=== PATIENT | male | born 1970 | race Caucasian/White ===

== ENCOUNTER 2025-01-16 02:24 | Emergency (ER) | payer OTHER, SELFPAY ==
[2025-01-16 02:24] VITALS: BP 143/91; PULSE 56; RESP 18; TEMP 36.5; O2SAT 95; BMI 30.1
--- NOTE | 2025-01-16 02:36 | CT_ITS ---
PROCEDURE: ABDOMEN/PELVIS WITHOUT CONT 01/16/2025 REASON FOR EXAM: KIDNEY STONE TECHNIQUE: Abdomen and pelvis CT without intravenous contrast. Noncontrast technique limits evaluation of the abdominal and pelvic viscera. Coronal and Sagittal reconstruction series were provided. One or more dose reduction techniques were used (e.g., Automated exposure control, adjustment of the mA and/or kV according to patient size, use of iterative reconstruction technique). PATIENT PREPARATION: Per protocol ORAL CONTRAST TYPE: None. COMPARISON: None available FINDINGS: Bibasilar atelectasis. The liver, gallbladder, adrenal glands, pancreas and spleen appear within limits on noncontrast imaging. Bilateral right more in number and size nephrolithiasis. 5 mm presenting axis proximal right ureteral stone near the ureteropelvic junction at the L2-3 level which based on size may not spontaneously pass. Associated moderate right hydronephrosis. Asymmetric right perinephric stranding and edema appears reactive. Abdominal aorta appears within limits on noncontrast imaging. No adenopathy. No bowel dilation or free air. Normal caliber appendix without secondary signs. The bladder appears within limits. Prostate appears within limits. No free fluid. L4-5 discogenic change with disc space narrowing. L5-S1 spondylosis/discogenic change. CT/Abdomen/Pelvis without Cont IMPRESSION: Bilateral right more in number and size nephrolithiasis. 5 mm presenting axis p roximal right ureteral stone near the ureteropelvic junction at the L2-3 level which based on size may not spontaneou sly pass. Associated moderate right hydronephrosis. Asymmetric right perinephric stranding and edema appears reacti ve. Reading Location: [id number]
--- NOTE | 2025-01-16 02:36 | EDS_ITS ---
HPI History of Present Illness Chief Complaint: Flank Pain Informant: patient and spouse/S.O. Narrative Narrative: Very pleasant 54-year-old male presenting to the emergency room with a chief complaint of kidney stone. Patient states he has a history of kidney stones has not required surgery to pass them. He states that earlier this evening he began to have some discomfort in the right side of his abdomen into the flank. He states it got better but then came back was lower towards his groin. He states that he did have some nausea and vomiting. The pain has backed off but it is still noted. He notes his urine is darker than normal. No reported fevers. He otherwise notes he is a very healthy individual. [facility] Medical History Kidney stones Home Medications ?Medication ?Instructions ?Recorded ?Last Taken ?Type ketorolac 10 mg tablet 10 mg PO Q8H PRN pain #15 ta bs 01/16/25 Unknown Rx ondansetron 4 mg disintegrating 4 mg PO Q6H PRN PRN Na usea #15 tabs 01/16/25 Unknown Rx tablet oxycodone-acetaminophen 5 mg-325 1 tab PO Q6H PRN PRN Pain 3 days 01/16/25 Unknown Rx mg tablet #12 TABLETS tamsulosin 0.4 mg capsule 0.4 mg PO DAILY #7 CAPSULES 01/16/25 Unknown Rx Allergy/AdvReac Type Severity Reaction Status Date / Time Penicillins (PCN) Allergy PT UNABLE Verified 01/16/25 02:28 TO RESPOND-NEEDS F/U Social History Smoking Status: Never smoker ROS ROS ED Constitutional Constitutional ED: Denies chills, fever(s) or weight loss Eyes Eyes: Denies change in vision or diplopia ENT ENT ED: Denies ear pain, rhinorrhea or sore throat Cardiovascular Cardiovascular: Denies chest pain, orthopnea, palpitations or racing heartbeat Respiratory/Chest Respiratory/Chest: Denies cough, dyspnea or orthopnea Gastrointestinal Gastrointestinal: Reports abdominal pain, nausea and vomiting; Denies diarrhea Genitourinary Genitourinary ED: Reports hematuria; Denies dysuria or urinary frequency Musculoskeletal Musculoskeletal: Reports back pain; Denies arthralgias or myalgias Integumentary Denies abscess or rash Neurologic Neurologic: Denies headache(s) or weakness Psychiatric Psychiatric: Denies anxiety, depression, suicidal ideation or suicidal thoughts Endocrine Endocrinology: Denies polydipsia, polyphagia or polyuria Allergic/Immunologic Allergic/Immunologic ED: Denies mouth swelling, tongue swelling or urticaria EXAM Physical Exam Const Vital Signs: 01/16/25 02:24 01/16/25 04:00 01/16/25 05:31 Temperature 97.7 F L 98.0 F Temperature Source Oral Pulse Rate 56 L 58 L 63 Respiratory Rate 18 16 18 Blood Pressure 143/91 H 153/87 H 126/72 H Blood Pressure Mean 108 109 90 Pulse Ox 95 97 96 Oxygen Delivery Method Room Air Room Air Positive well nourished and well developed General Appearance ED: well developed HEENT Reports normocephalic, head/scalp atraumatic and moist mucous membranes Eyes PERRL and EOMs intact bilaterally Neck no lymphadenopathy, supple and no JVD Resp normal respiratory effort and clear to auscultation bilaterally Cardio regular rate, regular rhythm and no murmurs GI normal to inspection, nondistended, normoactive bowel sounds and non-tender Palpation: soft Back/Spine no CVA tenderness and normal ROM Extremity normal to inspection General Extremety ED: Negative for edema General Extremity: Negative for edema Neuro oriented x3 and CN's II-XII intact bilaterally Sensorium / Orientation: alert Motor Exam: strength 5/5 throughout Psych mental status grossly normal Mood & Affect: Negative for depressed or tearful Skin no rashes or lesions noted and no wounds MDM MDM MDM Narrative Medical decision making narrative: Differential diagnosis includes but not limited to kidney stone hematuria UTI pyelonephritis hydronephrosis hydroureter appendicitis colitis Patient's white count is elevated 15 creatinine 1.37 glucose 142. Urinalysis demonstrates 25-[address] of the abdomen pelvis was obtained which demonstrates a proximal ureteral stone. There is associated hydronephroureter. Patient received Toradol and Zofran as well as IV fluids he has been doing better. His pain did return and he did receive morphine. I spoke with the patient at length regarding his findings. He is from out of town up from [facility]. Using shared decision making I will write for pain and nausea medication. He has been on Flomax in the past. He is planning on returning home today and will plan on making a follow-up appointment with urology. He understands return instructions as well as returning to his local ED should he require further pain management. History & Record Review Discussion w/independent historian: Patient and Family Additional record(s) reviewed:: No prior records Lab Data Attestation: I reviewed the patient's lab results. Labs: Laboratory Results - last 24 hr 01/16/25 01/16/25 02:30 02:42 WBC 15.0 H RBC 4.90 Hgb 15.1 Hct 43.1 MCV 88.0 MCH 30.8 MCHC 35.0 RDW Std Deviation 39.1 RDW Coeff of Loyda 12.1 Plt Count 233 MPV 9.8 Immature Gran % (Auto) 0.400 Neut % (Auto) 89.8 H Lymph % (Auto) 5.9 L [place] % (Auto) 3.5 Eos % (Auto) 0.1 Baso % (Auto) 0.3 Absolute Neuts (auto) 13.4 H Absolute Lymphs (auto) 0.88 Nucleated RBC % 0 Sodium 138 Potassium 3.9 Chloride 101 Carbon Dioxide 24.5 Anion Gap 12 BUN 19 Creatinine 1.37 H Estim Creat Clear Calc 80.11 Est GFR (MDRD) Non-Af 61 BUN/Creatinine Ratio 14.1 Glucose 142 H Calcium 9.7 Urine Color Yellow Urine Clarity Clear Urine pH 5.0 Ur Specific [place] 1.025 Urine Protein 30 H Urine Glucose (UA) Normal Urine Ketones Negative Urine Occult Blood 250 H Urine Nitrite Negative Urine Bilirubin Negative Urine Urobilinogen Normal Ur Leukocyte Esterase 25 H Urine RBC 25-50 SEEN Urine WBC 0-5 SEEN Ur Squamous Epith Cells 0-5 SEEN Urine Bacteria 0 SEEN Urine Mucus 0 SEEN Radiography Diagnostic Testing: Clinical Impression(s) from Imaging Studies Abdomen/Pelvis CT 01/16/25 02:36 IMPRESSION: Bilateral right more in number and size nephrolithiasis. 5 mm presenting axis proximal right ureteral stone near the ureteropelvic junction at the L2-3 level which based on size may not spontaneously pass. Associated moderate right hydronephrosis. Asymmetric right perinephric stranding and edema appears reactive. Reading Location: [facility] Discharge Plan Triage Chief Complaint: Flank Pain ED Provider: Franco Dillon Dx/Rx/DC Orders Clinical Impression: Kidney stone on right side, Abdominal pain, Vomiting Instructions: ED Kidney Stone with Pain Prescriptions: New oxycodone-acetaminophen 5-325 mg tablet 1 tab PO Q6H PRN PRN (Reason: Pain) 3 Days Qty: 12 0RF ketorolac 10 mg tablet 10 mg PO Q8H PRN (Reason: pain) Qty: 15 0RF Rx Instructions: maximum total duration of 5 days from all oral, intranasal, or parenteral formulations tamsulosin 0.4 mg capsule 0.4 mg PO DAILY Qty: 7 0RF ondansetron 4 mg tablet,disintegrating 4 mg PO Q6H PRN PRN (Reason: Nausea) Qty: 15 0RF Primary Care Provider: Care Physician,No Primary Referrals: [facility] Doctor,Out of [Non-Staff] - Activity Restrictions/Additional Instructions: Your urinalysis today demonstrated 25-50 red cells 0-5 white cells and no bacteria Your creatinine today is 1.3. Your white blood cell count is 15 Please follow up with Urology at home. Print Language: Kazakh Disposition Disposition: Home, Self Care Discharge Date/Time: 01/16/25 06:09
[2025-01-16] MEDS: 0.9% Normal Saline (1000mL) 1,000 ML 250 ML IV (02:48)
[2025-01-16] MEDS: Ondansetron 4 MG/2 ML Vial IV (02:48)
[2025-01-16] MEDS: Ketorolac 30 MG/ML Syringe IV (02:48)
[2025-01-16 02:53] LABS: Absolute Lymphocyte Count 0.88 X10^3/uL (0.83-4.51); Absolute Neutrophil Count 13.4 X10^3/uL (2.0-7.7); Basophil# 0.04 X10^3/uL; Basophil% 0.3 % (0-1); Eosinophil# 0.01 X10^3/uL; Eosinophils% 0.1 % (0-5); Hematocrit 43.1 % (40-54); Hemoglobin 15.1 g/dL (13.0-16.5); Lymphocyte # 0.88 X10^3/ul (0.83-4.51); Lymphocyte % 5.9 % (19-41); Mean Corpuscular Hgb 30.8 pg (27.0-32.0); Mean Platelet Vol. 9.8 fl (6.2-12.0); Monocyte# 0.53 X10^3/uL; Monocyte% 3.5 % (0-10); NRBC Flagged by Analyzer 0 % (0-5); Neutrophil # 13.43 X10^3/uL (2.7-7.7); Neutrophil % 89.8 % (47-70); Platelet Count 233 K/mm3 (150-450); RBC Distribution Width CV 12.1 % (11.6-14.6); RBC Distribution Width SD 39.1 fl (35.1-43.9)
[2025-01-16 03:14] LABS: Anion Gap 12 (5-15); BUN 19 mg/dL (4-19); BUN/Creat Ratio 14.1 RATIO (10-20); Calcium,Total 9.7 mg/dL (7.6-11.0); Carbon Dioxide 24.5 mmol/L (21.0-32.0); Chloride 101 mmol/L (98-108); Creatinine, Serum 1.37 mg/dL (0.70-1.20); EST Glomerular Filtration Rate 61 (>60); Estimated Creatinine Clearance 80.11 ml/min (50-250); Glucose 142 mg/dL (70-99); Potassium 3.9 mmol/L (3.3-5.1); Sodium Level 138 mmol/L (133-145)
[2025-01-16 03:17] LABS: Bacteria 0 SEEN /hpf (None Seen); Mucous, Urine 0 SEEN /hpf (<or=2+)
[2025-01-16 03:19] LABS: Color, Urine Yellow (Yellow); Glucose, Dipstick Normal (Normal); Ketone-Dipstick Negative (Negative); Leukocyte Esterase-Dipstick 25 /ul (Negative); Nitrite-Dipstick Negative (Negative); Occult Blood-Urine 250 /ul (Negative); Protein-Dipstick 30 mg/dl (Negative); Specific Gravity, Urine 1.025 (1.002-1.030); Urine Bilirubin Dipstick Negative (Negative); Urine Clarity Clear (Clear); Urine Urobilinogen Normal (Normal)
[2025-01-16 03:25] LABS: Red Blood Cells-Urine 25-50 SEEN /hpf (0-5); Squamous Epithelial Cells - UA 0-5 SEEN /hpf (0-5); White Blood Cells 0-5 SEEN /hpf (0-5)
[2025-01-16 04:00] VITALS: BP 153/87; PULSE 58; RESP 16; O2SAT 97
[2025-01-16] MEDS: Morphine 4 MG/ML Syringe IV (04:54)
[2025-01-16 05:31] VITALS: BP 126/72; PULSE 63; RESP 18; TEMP 36.7; O2SAT 96
== END 2025-01-16 06:09 | disposition home or self-care (01) ==
PROVIDERS: Emergency Provider Emergency Medicine; Visit Provider Emergency Medicine
DX: N13.2 Hydronephrosis with renal and ureteral calculous obstruction (principal); R11.10 Vomiting, unspecified
CPT/HCPCS: 74176; 80048; 81001; 85025; 96361; 96374; 96375; 96376; 99283; A4216; J2405